=== PATIENT | male | born 1960 | race Caucasian/White ===

== ENCOUNTER → 2019-04-30 | Outpatient (CLI) | payer BC ==
--- NOTE | 2019-04-30 10:33 | US ---
EXAMINATION TYPE: US kidneys/renal and bladder DATE OF EXAM: 04/30/2019 COMPARISON: NONE CLINICAL HISTORY: R31.1 Hematuria. microscopic hematuria, No pain EXAM MEASUREMENTS: Right Kidney: 10.7 x 4.8 x 4.3 cm Left Kidney: 12.5 x 6.4 x 5.7 cm Right Kidney: Possible mild hematuria Left Kidney: No hydronephrosis or masses seen Bladder: distended, anechoic Bilateral Jets seen Dromedary hump may be on the left kidney. IMPRESSION: No suspicious abnormality renal ultrasound
== END | disposition home or self-care (01) ==
LOC: RADUSWWP 06:49
PROVIDERS: ATTEND Urology
DX: R31.1 Benign essential microscopic hematuria (principal)
CPT/HCPCS: 76770; 84153